=== PATIENT | female | born 1965 | race African-American/Black ===

== ENCOUNTER → 2020-09-02 | Outpatient (CLI) | payer OTHER | LOC: MHCPAIN 13:09 | DX: M47.812 Spondylosis without myelopathy or radiculopathy, cervical region (principal); M54.2 Cervicalgia; G89.29 Other chronic pain; M54.12 Radiculopathy, cervical region | CPT/HCPCS: G0463 ==

== ENCOUNTER → 2024-06-21 | Outpatient (CLI) | payer OTHER | LOC: COL.RAD 07:47 | DX: K21.9 Gastro-esophageal reflux disease without esophagitis (principal) | CPT/HCPCS: A9541-JZ ==